=== PATIENT | male | born 1990 | race African-American/Black ===

== ENCOUNTER 2020-09-28 06:58 | Emergency (ER) | payer SELFPAY ==
[~2020-09-28] VITALS: Ht 182.9 cm; Wt 95.0 kg
[2020-09-28] MEDS ORDERED: IBUPROFEN 400MG TABLET PO ONE (08:15)
[2020-09-28 08:22] VITALS: BP 123/103
== END 2020-09-28 09:24 | disposition left against medical advice (07) ==
LOC: ER 06:58
DX: F32.9 Major depressive disorder, single episode, unspecified (principal); F20.9 Schizophrenia, unspecified; F15.10 Other stimulant abuse, uncomplicated; R51.9 Headache, unspecified; R25.2 Cramp and spasm; R00.0 Tachycardia, unspecified; F17.290 Nicotine dependence, other tobacco product, uncomplicated; F41.9 Anxiety disorder, unspecified; F43.10 Post-traumatic stress disorder, unspecified; Z76.0 Encounter for issue of repeat prescription
CPT/HCPCS: 99283; 99406; Z7610

== ENCOUNTER 2020-09-28 09:11 | Emergency (ER) | payer SELFPAY ==
[~2020-09-28] VITALS: Ht 177.8 cm; Wt 100.0 kg
[2020-09-28] MEDS ORDERED: MIRTAZAPINE 30MG TABLET PO STA (09:29)
[2020-09-28] MEDS ORDERED: LORAZEPAM 1MG TABLET PO ONE (09:30)
[2020-09-28] MEDS ORDERED: SODIUM CHLORIDE 0.9% 1,000 ML IV ONE (09:30)
[2020-09-28 09:52] LABS: BASOPHILS % 0.8 % (0.0-2.0); EOSINOPHILS % 0.1 % (0.0-5.0); HEMATOCRIT. 41.6 % (42.0-52.0); HEMOGLOBIN. 14.4 g/dL (14.0-18.0); LYMPHOCYTES % 9.5 % (20.0-50.0); MEAN CORPUSCULAR HEMOGLOBIN 30.5 pg (28.0-32.0); MEAN PLATELET VOLUME 6.4 fl (7.4-10.4); MONOCYTES % 5.8 % (2.0-8.0); NEUTROPHILS % 83.8 % (40.0-76.0); PLATELET 421 x1000/uL (130-400); RED BLOOD CELL COUNT 4.73 mill/uL (4.7-6.1); RED CELL DISTRIBUTION WIDTH 12.5 % (11.6-14.6)
[2020-09-28 09:58] LABS: CHLORIDE 103 mEq/L (98-107)
[2020-09-28] MEDS ORDERED: MIRTAZAPINE 15MG TABLET PO NR (10:00)
[2020-09-28 10:02] LABS: ETHANOL BLOOD < 10 mg/dL
[2020-09-28] MEDS ORDERED: LORAZEPAM 2MG/ML CPJ IM ONE (10:15)
[2020-09-28 10:35] LABS: CLARITY URINE CLOUDY (CLEAR); COLOR URINE YELLOW (YELLOW); KETONES URINE TRACE (NEGATIVE); LEUKOCYTE ESTERASE URINE NEGATIVE (NEGATIVE); NITRITE URINE NEGATIVE (NEGATIVE); OCCULT BLOOD URINE NEGATIVE (NEGATIVE); PH URINE 5.5 (4.5-8.0); PROTEIN URINE 1+ (NEGATIVE); SPECIFIC GRAVITY URINE 1.024 (1.005-1.030)
[2020-09-28 10:53] LABS: *AMPHETAMINES SCREEN URINE PRESUMTIVE POSITIVE (NEGATIVE); *BARBITURATES SCREEN URINE NEGATIVE (NEGATIVE)
[2020-09-28 10:54] LABS: *BENZODIAZEPINES SCREEN URINE NEGATIVE (NEGATIVE); *COCAINE SCREEN URINE NEGATIVE (NEGATIVE); CANNABINOID URINE SCREEN NEGATIVE (NEGATIVE); METHADONE URINE SCREEN NEGATIVE (NEGATIVE); OPIATES URINE SCREEN NEGATIVE (NEGATIVE); PHENCYCLIDINE URINE SCREEN NEGATIVE (NEGATIVE)
[2020-09-28] MEDS ORDERED: OLANZAPINE 10 MG/VIAL IM ONE (11:00)
[2020-09-28 22:02] VITALS: BP 121/80
== END 2020-09-28 22:03 | disposition home or self-care (01) ==
LOC: ER 09:51
DX: T43.621A Poisoning by amphetamines, accidental (unintentional), initial encounter (principal); G92 Toxic encephalopathy; F41.9 Anxiety disorder, unspecified; F17.200 Nicotine dependence, unspecified, uncomplicated; Y92.89 Other specified places as the place of occurrence of the external cause
CPT/HCPCS: 36415; 80048; 80305; 80307; 80320; 80329; 81003; 85025; 93005; 96372; 99285; J2060; J3490; J7030; Z7610; G0480